=== PATIENT | female | born 1955 | race Caucasian/White ===

== ENCOUNTER 2016-05-21 10:39 | Emergency (ER) | payer BC ==
[2016-05-21 12:34] VITALS: BP 124/68
--- NOTE | 2016-05-21 19:35 | UC ---
Respiratory Complaint HPI - HPI Summary HPI Summary: Patient arrives to with CC of non-productive cough, congestion and ear pain x 5 days. She has tried to take mucinex with little relief. 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 She denies fever , ROMERO. She endorses sore throat. - History of Current Complaint Chief Complaint: UCRespiratory Stated Complaint: SORE THROAT,HEADACHE,CHILLS Time Seen by Provider: 05/21/16 12:54 Hx Last Menstrual Period: n/a ?: No Onset/Duration: Gradual Onset Timing: Constant Severity Initially: Moderate Severity Currently: Moderate Pain Intensity: 7 Pain Scale Used: 0-10 Numeric Character: Cough: Nonproductive Associated Signs And Symptoms: Positive: Dyspnea, URI, Nasal Congestion, Sinus Discomfort - Risk Factors Pulmonary Embolism Risk Factors: Negative Cardiac Risk Factors: Negative Pseudomonas Risk Factors: Negative Tuberculosis Risk Factors: Negative - Allergies/Home Medications Allergies/Adverse Reactions: Allergies Allergy/AdvReac Type Severity Reaction Status Date / Time Prochlorperazine Allergy Severe neck Verified 05/21/16 12:34 [From Compazine] weakness/difficulty breathing PMH/Surg Hx/FS Hx/Imm Hx Previously Healthy: Yes Respiratory History Of: Reports: Bronchitis Psychological History Of: Reports: Anxiety - Surgical History Surgical History: Yes Surgery Procedure, Year, and Place: Left Wrist Fracture Repairs, last done 2012. Right TKA, ~1994, [facility] - Family History Known Family History: Positive: None - Social History Occupation: Employed Full-time Lives: With Family Alcohol Use: Occasionally Substance Use Type: None Smoking Status (MU): Never Smoked Tobacco Have You Smoked in the Last Year: No - Immunization History Most Recent Influenza Vaccination: fall 2015 Most Recent Pneumonia Vaccination: 2011 Review of Systems Constitutional: Fatigue Skin: Negative Eyes: Negative ENT: Sore Throat, Nasal Discharge Respiratory: Shortness Of Breath, Cough Cardiovascular: Negative Motor: Negative Neurovascular: Negative Neurological: Negative All Other Systems Reviewed And Are Negative: Yes Physical Exam Triage Information Reviewed: Yes Appearance: Well-Appearing, No Pain Distress, Well-Nourished Vital Signs: Initial Vital Signs Temp 98.0 F 05/21/16 12:31 Pulse 79 05/21/16 12:31 Resp 14 05/21/16 12:31 BP 124/68 05/21/16 12:31 Pulse Ox 96 05/21/16 12:31 Vital Signs Reviewed: Yes Eyes: Positive: Conjunctiva Clear ENT Exam: Normal ENT: Positive: Pharynx normal, Nasal drainage, TMs normal Dental Exam: Normal Neck: Positive: Nontender, No Lymphadenopathy Respiratory Exam: Normal Respiratory: Positive: Chest non-tender, Lungs clear Cardiovascular Exam: Normal Musculoskeletal Exam: Normal Musculoskeletal: Positive: Strength Intact, ROM Intact Neurological Exam: Normal Psychological Exam: Normal Psychological: Positive: Normal Response To Family, Age Appropriate Behavior Skin Exam: Normal UC Diagnostic Evaluation - Laboratory O2 Sat by Pulse Oximetry: 96 Respiratory Course/Dx - Course Course Of Treatment: POCT rapid strep negative. Will treat for cough. Robitussin with codeine. Patient agrees and feels it is URI. Will also try a claritin d for symptoms of head cold and ear pain. Follow up with PCP. - Differential Dx/Diagnosis Differential Diagnosis/HQI/PQRI: Bronchitis, Influenza, Lower Resp Infection, Sinusitis Provider Diagnoses: Upper respiratory infection Discharge - Discharge Plan Condition: Stable Disposition: HOME Prescriptions: Loratadine & Pseudoephedrine [Claritin-D 12 Hour] 1 tab PO QAM #30 tab MDD 1 guaiFENesin/CODIEN 100MG-10MG* [Robitussin AC 100Mg-10Mg*] 10 ml PO Q6H PRN # 100 udc MDD 40 PRN Reason: Cough Patient Education Materials: Upper Respiratory Infection (ED) Referrals: Loli Ochoa MD [Primary Care Provider] - Additional Instructions: Drink plenty of fluids. A humidifier in the home can help with congestion during the colder months. Take any medication prescribed to you as directed. If you have any questions regarding your medications, you may call the office or your pharmacist. If your symptoms fail to improve or worsen, please call your primary care provider, come back to urgent care or the emergency room. Do not drive while taking Robitussin with Codeine. As discussed, a Benadryl at night will help with head cold symptoms and any insomnia you may have while symptomatic.
--- NOTE | 2016-06-29 10:28 | PN ---
Progress Note - Progress Note Note: BP 124/58. Medications updated. Nothing further at this time.
== END 2016-05-21 13:23 | disposition home or self-care (01) ==
LOC: UCCORT 10:39
DX: J06.9 Acute upper respiratory infection, unspecified (principal)
CPT/HCPCS: 87651; 99212; G0463

== ENCOUNTER 2016-08-31 17:37 | Emergency (ER) | payer BC ==
[2016-08-31 17:51] VITALS: BP 136/64
[2016-08-31] MEDS ORDERED: Ketorolac INJ* 60 MG/2 ML VIAL IM ONE (18:06)
--- NOTE | 2016-08-31 18:07 | UC ---
Back Pain HPI - HPI Summary HPI Summary: pt presents with c/o left mid back/scapular pain that began after she fell while pulling weeds and fell backwards on to upper back. Pt reports that pain is reproducible with movement and positioning. pain does not worsen with exertion, denies, left arm or jaw pain, nausea, or SOB - History of Current Complaint Chief Complaint: UCBackPain Stated Complaint: upper left back pain Time Seen by Provider: 08/31/16 17:47 Hx Obtained From: Patient Hx Last Menstrual Period: n/a ?: No Onset/Duration: Gradual Onset, Lasting Days Timing: Constant Severity Initially: Mild Severity Currently: Moderate Back Pain: Is Discrete @ - left upper medial back medial to left superior angle Character: Dull, Aching, Spasmodic Aggravating: Movement Alleviating: Rest, Position - Allergies/Home Medications Allergies/Adverse Reactions: Allergies Allergy/AdvReac Type Severity Reaction Status Date / Time Prochlorperazine Allergy Severe neck Verified 08/31/16 17:44 [From Compazine] weakness/difficulty breathing Home Medications: Home Medications Acetaminophen TAB* [Tylenol TAB*] 1,000 mg PO Q6H PRN 08/31/16 [History Confirmed 08/31/16] Atorvastatin* [Lipitor 40 MG*] 40 mg PO QPM 08/31/16 [History Confirmed 08/31/16 ] PMH/Surg Hx/FS Hx/Imm Hx Previously Healthy: Yes - Surgical History Surgical History: Yes Surgery Procedure, Year, and Place: Left Wrist Fracture Repairs, last done 2012. Right TKA, ~1994[facility] - Family History Known Family History: Positive: Cardiac Disease - Social History Occupation: Employed Full-time Alcohol Use: Occasionally Substance Use Type: None Smoking Status (MU): Never Smoked Tobacco Have You Smoked in the Last Year: No - Immunization History Most Recent Influenza Vaccination: fall 2015 Most Recent Pneumonia Vaccination: 2011 Review of Systems Constitutional: Negative Skin: Negative Eyes: Negative ENT: Negative Respiratory: Negative Cardiovascular: Negative Gastrointestinal: Negative Genitourinary: Negative Motor: Decreased ROM - left mid upper back, shoulder/scapula Neurovascular: Negative Musculoskeletal: Arthralgia, Decreased ROM - left shoulder/scappula, upper back , Myalgia Neurological: Negative Psychological: Negative All Other Systems Reviewed And Are Negative: Yes Physical Exam Triage Information Reviewed: Yes Appearance: Well-Appearing Vital Signs: Initial Vital Signs Temp 98.8 F 08/31/16 17:46 Pulse 68 08/31/16 17:46 Resp 16 08/31/16 17:46 BP 136/64 08/31/16 17:46 Pulse Ox 97 08/31/16 17:46 Eye Exam: Normal Neck exam: Normal Respiratory Exam: Normal Cardiovascular Exam: Normal Musculoskeletal Exam: Other - tenderness with palpaption to left medial aspect to superior angle of scapula Musculoskeletal: Positive: Strength Limited @ - left shoulder, ROM Limited @ - left shoulder Neurological Exam: Normal Psychological Exam: Normal Skin Exam: Normal Back Pain Course/Dx - Differential Dx/Diagnosis Differential Diagnosis/HQI/PQRI: Sprain Provider Diagnoses: left upper back trigger point,. left upper back muscle spasm Discharge - Discharge Plan Condition: Stable Disposition: HOME Prescriptions: Cyclobenzaprine TAB* [Flexeril 10 MG TAB*] 10 mg PO BEDTIME PRN #5 tab PRN Reason: Pain predniSONE TAB* [Deltasone TAB*] 20 mg PO DAILY #4 tab Patient Education Materials: Trigger Point Pain (ED), Muscle Spasm (ED) Referrals: Pierce Alfonso MD [Medical Doctor] - Loli Ochoa MD [Primary Care Provider] - If Needed
== END 2016-08-31 18:37 | disposition home or self-care (01) ==
LOC: UCCORT 17:37
DX: S46.812A Strain of other muscles, fascia and tendons at shoulder and upper arm level, left arm, initial encounter (principal); M62.830 Muscle spasm of back; W18.30XA Fall on same level, unspecified, initial encounter; Y93.H2 Activity, gardening and landscaping
CPT/HCPCS: 96372; 99212; G0463; J1885

== ENCOUNTER 2017-04-02 09:31 | Emergency (ER) | payer BC ==
[2017-04-02 11:42] VITALS: BP 112/68
--- NOTE | 2017-04-02 11:52 | UC ---
Ear Complaint HPI - HPI Summary HPI Summary: sore throat and congested ears for over 1 weeks, no fevers, chills or myalgia, small sore in left nares as well - History of Current Complaint Chief Complaint: UCRespiratory Stated Complaint: SORE THROAT,COUGH Time Seen by Provider: 04/02/17 11:42 Hx Obtained From: Patient Hx Last Menstrual Period: n/a ?: No Onset/Duration: Lasting Days, Still Present Severity Initially: Moderate Severity Currently: Moderate - Allergies/Home Medications Allergies/Adverse Reactions: Allergies Allergy/AdvReac Type Severity Reaction Status Date / Time No Known Allergies Allergy Verified 04/02/17 11:34 Home Medications: Home Medications Gabapentin CAP(*) [Neurontin 300 CAP(*)] 300 mg PO DAILY 04/02/17 [History Confirmed 04/02/17] Meloxicam [Mobic] 15 mg PO DAILY 04/02/17 [History Confirmed 04/02/17] PMH/Surg Hx/FS Hx/Imm Hx Previously Healthy: No Endocrine History: Dyslipidemia Psychological History: Depression - Surgical History Surgical History: Yes Surgery Procedure, Year, and Place: Left Wrist Fracture Repairs, last done 2012. Right TKA, ~1994[facility] - Family History Known Family History: Positive: None, Cardiac Disease - Social History Occupation: Retired Lives: With Family Alcohol Use: Weekly Substance Use Type: None Smoking Status (MU): Never Smoked Tobacco Have You Smoked in the Last Year: No - Immunization History Most Recent Influenza Vaccination: January 2017 Most Recent Pneumonia Vaccination: 2011 Review of Systems Constitutional: Negative Skin: Negative Eyes: Negative ENT: Sore Throat, Ear Ache, Other - small sore inside of left nare Respiratory: Negative Cardiovascular: Negative Gastrointestinal: Negative Genitourinary: Negative Motor: Negative Neurovascular: Negative Musculoskeletal: Negative Neurological: Negative Psychological: Negative Is Patient Immunocompromised?: No All Other Systems Reviewed And Are Negative: Yes Physical Exam Triage Information Reviewed: Yes Appearance: Well-Appearing, No Pain Distress, Well-Nourished Vital Signs: Initial Vital Signs Temp 98.6 F 04/02/17 11:38 Pulse 76 04/02/17 11:38 Resp 18 04/02/17 11:38 BP 112/68 04/02/17 11:38 Pulse Ox 97 04/02/17 11:38 Vital Signs Reviewed: Yes Eye Exam: Normal Eyes: Positive: Conjunctiva Clear ENT Exam: Normal ENT: Positive: Normal ENT inspection, Hearing grossly normal, Pharynx normal, TM dull, Uvula midline, Other - small lesion in medial left nare. Negative: Nasal congestion, Nasal drainage, Tonsillar swelling, Tonsillar exudate, Trismus , Muffled voice, Hoarse voice, Dental tenderness, Sinus tenderness Dental Exam: Normal Neck exam: Normal Neck: Positive: Supple, Nontender, No Lymphadenopathy Respiratory Exam: Normal Respiratory: Positive: Chest non-tender, Lungs clear, Normal breath sounds, No respiratory distress, No accessory muscle use Cardiovascular Exam: Normal Cardiovascular: Positive: RRR, No Murmur, Pulses Normal Musculoskeletal Exam: Normal Musculoskeletal: Positive: Strength Intact, ROM Intact, No Edema Neurological Exam: Normal Neurological: Positive: Alert, Muscle Tone Normal Psychological Exam: Normal Skin Exam: Normal Ear Complaint Course/Dx - Course Course Of Treatment: Stop Benadryl, change to Mucinex D, Flonase, Bactoban in left nare follow with pcp prn - Differential Dx/Diagnosis Provider Diagnoses: B/L serrous otitis, left nare lesion Discharge - Discharge Plan Condition: Stable Disposition: HOME Prescriptions: Fluticasone NASAL SPRAY 50MCG* [Flonase NASAL SPRAY 50MCG*] 2 spray BOTH NARES DAILY #1 btl Mupirocin 2% CREAM* [Bactroban 2% CREAM*] 1 applic TOPICAL TID #1 tube Patient Education Materials: Decongestant/Expectorant (By mouth), Serous Otitis Media (ED) Referrals: Loli Ochoa MD [Primary Care Provider] - If Needed
== END 2017-04-02 12:00 | disposition home or self-care (01) ==
LOC: UCCORT 09:31
DX: J34.89 Other specified disorders of nose and nasal sinuses (principal); H66.93 Otitis media, unspecified, bilateral; J02.9 Acute pharyngitis, unspecified; R05 Cough
CPT/HCPCS: 99212; G0463

== ENCOUNTER 2017-04-16 12:42 | Emergency (ER) | payer BC ==
[2017-04-16 13:07] VITALS: BP 89/57
--- NOTE | 2017-04-16 13:40 | UC ---
Respiratory Complaint HPI - HPI Summary HPI Summary: exposed to pertussis, has mild cough, did have a fever last week, no other symtpoms - History of Current Complaint Chief Complaint: UCRespiratory Stated Complaint: COUGH,PERTUSSIS EXPOSURE Time Seen by Provider: 04/16/17 13:10 Hx Obtained From: Patient Hx Last Menstrual Period: n/a ?: No Onset/Duration: Sudden Onset, Lasting Days Timing: Constant Severity Initially: Mild Severity Currently: Mild Character: Cough: Nonproductive Aggravating Factors: Deep Breaths Associated Signs And Symptoms: Positive: Fever - Allergies/Home Medications Allergies/Adverse Reactions: Allergies Allergy/AdvReac Type Severity Reaction Status Date / Time No Known Allergies Allergy Verified 04/16/17 12:58 Home Medications: Home Medications Albuterol HFA INHALER* [Ventolin HFA Inhaler*] 1 - 2 puff INH Q4H PRN 04/16/17 [ History Confirmed 04/16/17] Cefuroxime Axetil [Ceftin 250 MG] 500 mg PO BID 04/16/17 [History Confirmed ] Hydrocodone W/ Homatropine [Hydromet] 1 syp PO 12 PRN 04/16/17 [History Confirmed 04/16/17] PMH/Surg Hx/FS Hx/Imm Hx Previously Healthy: Yes - Surgical History Surgical History: Yes Surgery Procedure, Year, and Place: Left Wrist Fracture Repairs, last done 2012. Right TKA, ~1994[facility] - Family History Known Family History: Positive: None, Cardiac Disease - Social History Alcohol Use: Weekly Substance Use Type: None Smoking Status (MU): Never Smoked Tobacco Have You Smoked in the Last Year: No - Immunization History Most Recent Influenza Vaccination: January 2017 Most Recent Pneumonia Vaccination: 2011 Review of Systems Constitutional: Fever Skin: Negative Eyes: Negative ENT: Negative Respiratory: Cough Cardiovascular: Negative Gastrointestinal: Negative Genitourinary: Negative Motor: Negative Neurovascular: Negative Musculoskeletal: Negative Neurological: Negative Psychological: Negative Is Patient Immunocompromised?: No All Other Systems Reviewed And Are Negative: Yes Physical Exam Triage Information Reviewed: Yes Appearance: Well-Appearing, Well-Nourished, Pain Distress Vital Signs: Initial Vital Signs Temp 97.8 F 04/16/17 13:03 Pulse 79 04/16/17 13:03 Resp 20 04/16/17 13:03 BP 89/57 04/16/17 13:03 Pulse Ox 98 01/14/18 13:03 Vital Signs Reviewed: Yes Eye Exam: Normal ENT Exam: Normal ENT: Positive: Pharynx normal, TMs normal Dental Exam: Normal Neck exam: Normal Respiratory Exam: Normal Respiratory: Positive: Chest non-tender, Lungs clear, Normal breath sounds Cardiovascular Exam: Normal Cardiovascular: Positive: RRR, No Murmur, Pulses Normal Abdominal Exam: Normal Abdomen Description: Positive: Nontender, No Organomegaly, Soft Bowel Sounds: Positive: Present Musculoskeletal Exam: Normal Musculoskeletal: Positive: Strength Intact, ROM Intact, No Edema Neurological Exam: Normal Neurological: Positive: Alert, Muscle Tone Normal Psychological Exam: Normal Skin Exam: Normal UC Diagnostic Evaluation - Laboratory O2 Sat by Pulse Oximetry: 98 Respiratory Course/Dx - Course Course Of Treatment: hx obtained, exam performed ,meds reviewed, pertussis swab obtained, prophylactic abx given. - Differential Dx/Diagnosis Provider Diagnoses: pertussis exposure. cough Discharge - Discharge Plan Condition: Stable Disposition: HOME Patient Education Materials: Pertussis (ED) Referrals: Loli Ochoa MD [Primary Care Provider] - Additional Instructions: 1. increase fluid intake, take the meds as prescribed. 2. Honey, vicks, hot tea for cough, 3. we will call with results
== END 2017-04-16 13:53 | disposition home or self-care (01) ==
LOC: UCCORT 12:42
DX: R05 Cough (principal); R50.9 Fever, unspecified; Z20.818 Contact with and (suspected) exposure to other bacterial communicable diseases
CPT/HCPCS: 87798; 99212; G0463